=== PATIENT | female | born 1995 | race Caucasian/White ===

== ENCOUNTER → 2022-08-13 | Outpatient (CLI) | payer MEDICAID, SELFPAY ==
--- NOTE | 2022-08-13 09:50 | TELEMED_ITS ---
[facility] has confirmed receipt of a request for visit. This document confirms receipt of the order initiating the consult. To find the results of the consultation, please view the patient's reports for the scanned Telemed Consult.
== END | disposition home or self-care (01) ==
PROVIDERS: Referring Provider Psychiatry & Neurology Neurology; Visit Provider Psychiatry & Neurology Neurology
DX: G40.812 Lennox-Gastaut syndrome, not intractable, without status epilepticus (principal)
CPT/HCPCS: 95819